=== PATIENT | male | born 1960 | race Asian ===

== ENCOUNTER 2021-05-15 20:33 | Inpatient (IN) | payer OTHER, SELFPAY ==
[~2021-05-15] VITALS: Ht 167.6 cm; Wt 63.0 kg
[2021-05-15 20:55] VITALS: BP_SYST 142
[2021-05-15 22:39] LABS: BASOPHILS % (AUTO) 0.3 % (0.0-2.0); EOSINOPHILS # (AUTO) 0.1 K/uL (0.0-0.4); EOSINOPHILS % (AUTO) 1.3 % (0.0-4.0); HEMATOCRIT 43.6 % (36-54); HEMOGLOBIN 14.9 g/dL (14.0-18.0); LYMPHOCYTES # (AUTO) 0.6 K/uL (1.0-5.5); LYMPHOCYTES % (AUTO) 6.1 % (20.5-51.5); MEAN CORPUSCULAR HEMOGLOBIN 30 pg (27-31); MEAN CORPUSCULAR HGB CONC 34 % (32-36); MEAN CORPUSCULAR VOLUME 87 fL (79.0-98.0); MONOCYTES # (AUTO) 0.8 K/uL (0.0-1.0); MONOCYTES % (AUTO) 7.8 % (1.7-9.3); NEUTROPHILS # (AUTO) 8.7 K/uL (1.8-7.7); NEUTROPHILS % (AUTO) 84.5 % (40.0-70.0); PLATELET COUNT (AUTO) 394 K/uL (130-430); RED BLOOD CELL COUNT(AUTO) 5.03 MIL/uL (4.2-6.2); RED CELL DISTRIBUTION WIDTH 13.9 % (9.0-15.0); WHITE BLOOD COUNT (AUTO) 10.3 K/uL (4.8-10.8)
[2021-05-15 22:47] LABS: CALCIUM 7.9 mg/dL (8.4-11.0); CREATININE 0.87 mg/dL (0.55-1.30); POTASSIUM 3.2 mmol/L (3.5-5.1)
[2021-05-15 22:54] LABS: ALBUMIN 2.3 g/dL (3.4-4.8); TOTAL BILIRUBIN 0.5 mg/dL (0.0-1.0)
[2021-05-15] MEDS ORDERED: AZITHROMYCIN 500 MG in NS 250 ML IV ONE (23:00)
[2021-05-15] MEDS ORDERED: DEXAMETHASONE SOD PHOSPHATE 4 MG/ML VIAL IVP ONE (23:00)
[2021-05-15] MEDS ORDERED: cefTRIAXone 1 GM IVPB PREMIX 50 ML IV ONE (23:00)
[2021-05-15 23:32] LABS: C-REACTIVE PROTEIN QUANT 11.6 mg/dL (0-0.5)
[2021-05-15] MEDS ORDERED: AZITHROMYCIN 500 MG/VIAL (ZITHROMAX) IV ONE (23:52)
[2021-05-16] MEDS ORDERED: NACL 0.9% 1,000 ML IV ONE (01:00)
[2021-05-16 01:03] LABS: FIBRINOGEN 521 mg/dL (200-400)
[2021-05-16 01:28] VITALS: BP_SYST 157
[2021-05-16] MEDS ORDERED: POTASSIUM CHLORIDE 20 MEQ TAB.PRT.SR ONE (01:38)
[2021-05-16] MEDS ORDERED: POTASSIUM CHLORIDE 20 MEQ TAB.PRT.SR PO ONE (01:45)
[2021-05-16 05:01] VITALS: BP_SYST 139
[2021-05-16 08:00] VITALS: BP_SYST 128
[2021-05-16 08:16] LABS: BASOPHILS % (AUTO) 0.1 % (0.0-2.0); HEMATOCRIT 43.5 % (36-54); HEMOGLOBIN 14.8 g/dL (14.0-18.0); LYMPHOCYTES # (AUTO) 0.8 K/uL (1.0-5.5); LYMPHOCYTES % (AUTO) 10.8 % (20.5-51.5); MEAN CORPUSCULAR HEMOGLOBIN 29 pg (27-31); MEAN CORPUSCULAR HGB CONC 34 % (32-36); MEAN CORPUSCULAR VOLUME 87 fL (79.0-98.0); MONOCYTES # (AUTO) 0.3 K/uL (0.0-1.0); MONOCYTES % (AUTO) 3.9 % (1.7-9.3); NEUTROPHILS # (AUTO) 6.5 K/uL (1.8-7.7); NEUTROPHILS % (AUTO) 85.2 % (40.0-70.0); PLATELET COUNT (AUTO) 364 K/uL (130-430); RED BLOOD CELL COUNT(AUTO) 5.02 MIL/uL (4.2-6.2); RED CELL DISTRIBUTION WIDTH 14.2 % (9.0-15.0); WHITE BLOOD COUNT (AUTO) 7.7 K/uL (4.8-10.8)
[2021-05-16] MEDS ORDERED: HYDROcodone/ACETAMIN 5-325 MG TAB (NORCO/ VICODIN) PO PRN (11:45)
[2021-05-16] MEDS ORDERED: ONDANSETRON HCL 4 MG/2 ML VIAL IVP PRN (11:45)
[2021-05-16] MEDS ORDERED: NALOXONE HCL 0.4 MG/ML AMP (NARCAN) IVP PRN ×2 (11:45)
[2021-05-16] MEDS ORDERED: LORazepam 2 MG/ML VIAL IVP PRN (11:45)
[2021-05-16] MEDS ORDERED: HYDROcodone/ACETAMIN 10-325 MG TAB PO PRN (11:45)
[2021-05-16] MEDS ORDERED: ACETAMINOPHEN 325 MG TABLET PO PRN (11:45)
[2021-05-16 12:00] VITALS: BP_SYST 127
[2021-05-16] MEDS ORDERED: CHOLECALCIFEROL (VITAMIN D3) 5,000 UNIT TABLET PO ONE (12:00)
[2021-05-16] MEDS: cefTRIAXone 1 GM IVPB PREMIX 50 ML IV SCH (13:46)
[2021-05-16] MEDS: DEXAMETHASONE SOD PHOSPHATE 10 MG/ML VIAL IVP SCH (13:46)
[2021-05-16] MEDS: NORMAL SALINE 5 ML DISP.SYRIN IVF SCH ×2 (13:47→22:00)
[2021-05-16] MEDS: AZITHROMYCIN 500 MG in NS 250 ML IV SCH (13:47)
[2021-05-16 13:49] LABS: C-REACTIVE PROTEIN QUANT 9.5 mg/dL (0-0.5); CREATININE 0.9 mg/dL (0.55-1.30); POTASSIUM 4.5 mmol/L (3.5-5.1)
[2021-05-16] MEDS ORDERED: NORMAL SALINE 5 ML DISP.SYRIN IVF SCH (14:00)
[2021-05-16] MEDS: IPRATROPIUM BROM 0.5 MG/2.5 ML VIAL.NEB (ATROVENT) INH SCH ×3 (15:00→20:25)
[2021-05-16] MEDS: ALBUTEROL SULFATE 0.083% 2.5 MG/3 ML VIAL.NEB INH SCH ×3 (15:00→20:25)
[2021-05-16] MEDS ORDERED: BUDESONIDE 0.5 MG/2 ML AMPUL.NEB INH ONE (15:30)
[2021-05-16 16:00] VITALS: BP_SYST 138
[2021-05-16] MEDS: BUDESONIDE 0.5 MG/2 ML AMPUL.NEB INH SCH (20:25)
[2021-05-16 20:30] VITALS: BP_SYST 149
[2021-05-16] MEDS: ASCORBIC ACID 500 MG TABLET PO SCH (20:34)
[2021-05-16] MEDS: ENOXAPARIN SODIUM 60 MG/0.6 ML SYRINGE SUBCUT SCH (20:36)
[2021-05-17] VITALS: BP_SYST 132
[2021-05-17] MEDS: NORMAL SALINE 5 ML DISP.SYRIN IVF SCH ×3 (05:51→21:46)
[2021-05-17 08:00] VITALS: BP_SYST 122
[2021-05-17] MEDS: ASCORBIC ACID 500 MG TABLET PO SCH ×2 (09:04→21:43)
[2021-05-17] MEDS: CHOLECALCIFEROL (VITAMIN D3) 5,000 UNIT TABLET PO SCH (09:04)
[2021-05-17] MEDS: ENOXAPARIN SODIUM 60 MG/0.6 ML SYRINGE SUBCUT SCH ×2 (09:10→21:44)
[2021-05-17 11:23] LABS: BASOPHILS % (AUTO) 0.1 % (0.0-2.0); EOSINOPHILS # (AUTO) 0.1 K/uL (0.0-0.4); EOSINOPHILS % (AUTO) 0.4 % (0.0-4.0); HEMATOCRIT 41.8 % (36-54); HEMOGLOBIN 13.8 g/dL (14.0-18.0); LYMPHOCYTES # (AUTO) 1.1 K/uL (1.0-5.5); LYMPHOCYTES % (AUTO) 6.7 % (20.5-51.5); MEAN CORPUSCULAR HEMOGLOBIN 29 pg (27-31); MEAN CORPUSCULAR HGB CONC 33 % (32-36); MEAN CORPUSCULAR VOLUME 87 fL (79.0-98.0); MONOCYTES # (AUTO) 0.9 K/uL (0.0-1.0); MONOCYTES % (AUTO) 5.6 % (1.7-9.3); NEUTROPHILS # (AUTO) 13.6 K/uL (1.8-7.7); NEUTROPHILS % (AUTO) 87.2 % (40.0-70.0); PLATELET COUNT (AUTO) 386 K/uL (130-430); RED BLOOD CELL COUNT(AUTO) 4.79 MIL/uL (4.2-6.2); RED CELL DISTRIBUTION WIDTH 13.8 % (9.0-15.0); WHITE BLOOD COUNT (AUTO) 15.6 K/uL (4.8-10.8)
[2021-05-17 11:43] LABS: ALBUMIN 2.2 g/dL (3.4-4.8); CALCIUM 8.3 mg/dL (8.4-11.0); CREATININE 0.75 mg/dL (0.55-1.30); PHOSPHORUS 3.6 mg/dL (2.7-4.5); TOTAL BILIRUBIN 0.4 mg/dL (0.0-1.0)
[2021-05-17] MEDS: DEXAMETHASONE SOD PHOSPHATE 10 MG/ML VIAL IVP SCH (12:11)
[2021-05-17] MEDS: AZITHROMYCIN 500 MG in NS 250 ML IV SCH (12:12)
[2021-05-17] MEDS: cefTRIAXone 1 GM IVPB PREMIX 50 ML IV SCH (12:12)
[2021-05-17 12:32] LABS: C-REACTIVE PROTEIN QUANT 5.7 mg/dL (0-0.5)
[2021-05-17 12:39] VITALS: BP_SYST 133
[2021-05-17 16:47] VITALS: BP_SYST 135
[2021-05-17 20:30] VITALS: BP_SYST 136
[2021-05-18 04:00] VITALS: BP_SYST 134
[2021-05-18] MEDS: NORMAL SALINE 5 ML DISP.SYRIN IVF SCH ×3 (06:28→20:14)
[2021-05-18 08:00] VITALS: BP_SYST 124
[2021-05-18 08:25] LABS: BASOPHILS % (AUTO) 0.2 % (0.0-2.0); EOSINOPHILS # (AUTO) 0.3 K/uL (0.0-0.4); EOSINOPHILS % (AUTO) 2.7 % (0.0-4.0); HEMATOCRIT 40.9 % (36-54); HEMOGLOBIN 13.7 g/dL (14.0-18.0); LYMPHOCYTES # (AUTO) 0.9 K/uL (1.0-5.5); LYMPHOCYTES % (AUTO) 7.7 % (20.5-51.5); MEAN CORPUSCULAR HEMOGLOBIN 29 pg (27-31); MEAN CORPUSCULAR HGB CONC 33 % (32-36); MEAN CORPUSCULAR VOLUME 88 fL (79.0-98.0); MONOCYTES # (AUTO) 0.5 K/uL (0.0-1.0); NEUTROPHILS # (AUTO) 10.1 K/uL (1.8-7.7); NEUTROPHILS % (AUTO) 85.4 % (40.0-70.0); PLATELET COUNT (AUTO) 342 K/uL (130-430); RED BLOOD CELL COUNT(AUTO) 4.68 MIL/uL (4.2-6.2); WHITE BLOOD COUNT (AUTO) 11.8 K/uL (4.8-10.8)
[2021-05-18 08:27] LABS: CALCIUM 7.7 mg/dL (8.4-11.0); CREATININE 0.7 mg/dL (0.55-1.30); POTASSIUM 3.6 mmol/L (3.5-5.1)
[2021-05-18] MEDS: ENOXAPARIN SODIUM 60 MG/0.6 ML SYRINGE SUBCUT SCH ×3 (09:00→20:14)
[2021-05-18] MEDS: ASCORBIC ACID 500 MG TABLET PO SCH ×2 (10:10→20:13)
[2021-05-18] MEDS: CHOLECALCIFEROL (VITAMIN D3) 5,000 UNIT TABLET PO SCH (10:10)
[2021-05-18 10:34] LABS: C-REACTIVE PROTEIN QUANT 13.1 mg/dL (0-0.5)
[2021-05-18 12:00] VITALS: BP_SYST 100
[2021-05-18] MEDS: DEXAMETHASONE SOD PHOSPHATE 10 MG/ML VIAL IVP SCH (14:22)
[2021-05-18] MEDS: cefTRIAXone 1 GM IVPB PREMIX 50 ML IV SCH (14:22)
[2021-05-18] MEDS: AZITHROMYCIN 500 MG in NS 250 ML IV SCH (14:23)
[2021-05-18 15:57] LABS: ERYTHROCYTE SEDIMENTATION RATE 28 MM/HR (0-15)
[2021-05-18 16:00] VITALS: BP_SYST 115
[2021-05-18 20:00] VITALS: BP_SYST 116
[2021-05-19] VITALS (20 sets, daily range): BP systolic 72–165
[2021-05-19] MEDS: NORMAL SALINE 5 ML DISP.SYRIN IVF SCH ×3 (06:14→21:07)
[2021-05-19] MEDS: BUDESONIDE 0.5 MG/2 ML AMPUL.NEB INH SCH ×2 (09:00→21:00)
[2021-05-19] MEDS: CHOLECALCIFEROL (VITAMIN D3) 5,000 UNIT TABLET PO SCH (09:00)
[2021-05-19] MEDS: ASCORBIC ACID 500 MG TABLET PO SCH ×2 (09:00→21:07)
[2021-05-19] MEDS: ENOXAPARIN SODIUM 60 MG/0.6 ML SYRINGE SUBCUT SCH ×2 (09:00→21:06)
[2021-05-19] MEDS ORDERED: PROPOFOL DRIP 100 ML IV ONE (09:12)
[2021-05-19] MEDS ORDERED: PROPOFOL DRIP 100 ML IV PRN (09:15)
[2021-05-19] MEDS ORDERED: ETOMIDATE 20 MG/ 10 ML VIAL (AMIDATE) IVP ONE (09:15)
[2021-05-19] MEDS ORDERED: VECURONIUM BROMIDE 10 MG/VIAL (NORCURON) IVP ONE ×2 (09:15→12:00)
[2021-05-19] MEDS ORDERED: METOPROLOL TARTRATE 5 MG/5 ML AMPUL IVP PRN (10:15)
[2021-05-19] MEDS ORDERED: METOPROLOL TARTRATE 5 MG/5 ML AMPUL IVP ONE (10:15)
[2021-05-19] MEDS ORDERED: MORPHINE SULFATE IN 0.9 % NACL 100 ML IV PRN (11:00)
[2021-05-19] MEDS ORDERED: NALOXONE HCL 0.4 MG/ML AMP (NARCAN) IVP PRN ×2 (11:00→13:15)
[2021-05-19] MEDS ORDERED: MORPHINE SULFATE IN 0.9 % NACL 100 ML IV ONE (11:03)
[2021-05-19] MEDS ORDERED: MIDAZOLAM IN NACL,ISO-OSMOT/PF 100 ML IV ONE (11:04)
[2021-05-19 11:09] LABS: HEMATOCRIT 45.7 % (36-54); HEMOGLOBIN 14.8 g/dL (14.0-18.0); MEAN CORPUSCULAR HEMOGLOBIN 29 pg (27-31); MEAN CORPUSCULAR HGB CONC 32 % (32-36); MEAN CORPUSCULAR VOLUME 88 fL (79.0-98.0); PLATELET COUNT (AUTO) 336 K/uL (130-430); RED BLOOD CELL COUNT(AUTO) 5.19 MIL/uL (4.2-6.2); RED CELL DISTRIBUTION WIDTH 14.4 % (9.0-15.0)
[2021-05-19] MEDS ORDERED: VECURONIUM BROMIDE 10 MG/VIAL (NORCURON) ONE (11:25)
[2021-05-19] MEDS ORDERED: NOREPINEPHRINE 4 MG/4 ML VIAL IV ONE ×3 (11:27→20:04)
[2021-05-19 11:29] LABS: ALBUMIN 2.2 g/dL (3.4-4.8); CALCIUM 7.9 mg/dL (8.4-11.0); CREATININE 0.68 mg/dL (0.55-1.30); POTASSIUM 3.6 mmol/L (3.5-5.1); THYROID STIMULATING HORMONE 0.01 uIu/mL (0.36-3.74); TOTAL BILIRUBIN 0.9 mg/dL (0.0-1.0)
[2021-05-19 11:44] LABS: PROTHROMBIN TIME 10.5 SECS (9.5-12.5)
[2021-05-19] MEDS: DEXAMETHASONE SOD PHOSPHATE 10 MG/ML VIAL IVP SCH (12:00)
[2021-05-19] MEDS ORDERED: VECURONIUM BROMIDE 50 MG in NS 50 ML IV PRN (13:15)
[2021-05-19] MEDS: ALBUTEROL SULFATE 0.083% 2.5 MG/3 ML VIAL.NEB INH SCH ×4 (13:38→23:00)
[2021-05-19] MEDS: IPRATROPIUM BROM 0.5 MG/2.5 ML VIAL.NEB (ATROVENT) INH SCH ×4 (13:38→23:00)
[2021-05-19] MEDS: AZITHROMYCIN 500 MG in NS 250 ML IV SCH (13:42)
[2021-05-19] MEDS: VECURONIUM BROMIDE 50 MG in NS 50 ML IV PRN (14:03)
[2021-05-19 14:51] LABS: BAND % (MANUAL) 4 % (0-6); BASOPHILS % (MANUAL) 0 % (0-2); EOSINOPHILS % (MANUAL) 0 % (0-7); LYMPHOCYTES % (MANUAL) 3 % (20-46); MONOCYTES % (MANUAL) 2 % (0-11)
[2021-05-19] MEDS: NOREPINEPHRINE BITARTRATE 4 MG in NS 246 ML IV PRN ×2 (15:41→18:14)
[2021-05-19] MEDS: cefTRIAXone 1 GM IVPB PREMIX 50 ML IV SCH (15:42)
[2021-05-19] MEDS: NACL 0.9% 1,000 ML IV SCH (16:26)
[2021-05-19] MEDS ORDERED: TOCILIZUMAB 400 MG in NS 100 ML IV ONE (17:00)
[2021-05-19] MEDS: NOREPINEPHRINE BITARTRATE IV PRN (21:05)
[2021-05-19] MEDS: NS IV PRN (21:05)
[2021-05-20] VITALS (29 sets, daily range): BP systolic 86–143
[2021-05-20] MEDS: NACL 0.9% 1,000 ML IV SCH ×2 (01:53→19:25)
[2021-05-20] MEDS: ALBUTEROL SULFATE 0.083% 2.5 MG/3 ML VIAL.NEB INH SCH ×2 (03:00→07:00)
[2021-05-20] MEDS: IPRATROPIUM BROM 0.5 MG/2.5 ML VIAL.NEB (ATROVENT) INH SCH ×5 (03:00→23:24)
[2021-05-20] MEDS: NORMAL SALINE 5 ML DISP.SYRIN IVF SCH ×3 (05:46→22:20)
[2021-05-20 06:21] LABS: BASOPHILS % (AUTO) 0.3 % (0.0-2.0); EOSINOPHILS # (AUTO) 0.3 K/uL (0.0-0.4); EOSINOPHILS % (AUTO) 1.7 % (0.0-4.0); HEMATOCRIT 42.3 % (36-54); LYMPHOCYTES # (AUTO) 1.3 K/uL (1.0-5.5); LYMPHOCYTES % (AUTO) 7.2 % (20.5-51.5); MEAN CORPUSCULAR HEMOGLOBIN 30 pg (27-31); MEAN CORPUSCULAR HGB CONC 33 % (32-36); MEAN CORPUSCULAR VOLUME 89 fL (79.0-98.0); MONOCYTES # (AUTO) 0.6 K/uL (0.0-1.0); MONOCYTES % (AUTO) 3.2 % (1.7-9.3); NEUTROPHILS # (AUTO) 15.7 K/uL (1.8-7.7); NEUTROPHILS % (AUTO) 87.6 % (40.0-70.0); PLATELET COUNT (AUTO) 258 K/uL (130-430); RED BLOOD CELL COUNT(AUTO) 4.74 MIL/uL (4.2-6.2); RED CELL DISTRIBUTION WIDTH 14.4 % (9.0-15.0); WHITE BLOOD COUNT (AUTO) 17.9 K/uL (4.8-10.8)
[2021-05-20 06:33] LABS: ALBUMIN 1.9 g/dL (3.4-4.8); CALCIUM 7.2 mg/dL (8.4-11.0); CREATININE 1.03 mg/dL (0.55-1.30); POTASSIUM 4.8 mmol/L (3.5-5.1); TOTAL BILIRUBIN 0.4 mg/dL (0.0-1.0)
[2021-05-20 08:04] LABS: ERYTHROCYTE SEDIMENTATION RATE 9 MM/HR (0-15)
[2021-05-20] MEDS: ASCORBIC ACID 500 MG TABLET PO SCH ×2 (08:51→20:41)
[2021-05-20] MEDS: CHOLECALCIFEROL (VITAMIN D3) 5,000 UNIT TABLET PO SCH (08:51)
[2021-05-20] MEDS: ENOXAPARIN SODIUM 60 MG/0.6 ML SYRINGE SUBCUT SCH ×2 (08:54→22:22)
[2021-05-20] MEDS: BUDESONIDE 0.5 MG/2 ML AMPUL.NEB INH SCH ×2 (09:00→19:57)
[2021-05-20] MEDS: MIDAZOLAM IN NACL,ISO-OSMOT/PF 100 ML IV PRN (09:01)
[2021-05-20] MEDS ORDERED: DEXAMETHASONE SOD PHOSPHATE 10 MG/ML VIAL IVP ONE (09:45)
[2021-05-20] MEDS ORDERED: PANTOPRAZOLE SODIUM 40 MG/VIAL (PROTONIX) IVP ONE (10:15)
[2021-05-20 12:44] LABS: C-REACTIVE PROTEIN QUANT 13.2 mg/dL (0-0.5)
[2021-05-20] MEDS: ALBUTEROL MDI INHALATION 8 GM INH INH SCH ×2 (13:09→19:00)
[2021-05-20] MEDS: AZITHROMYCIN 500 MG in NS 250 ML IV SCH (13:10)
[2021-05-20] MEDS: PIPERACILLIN/TAZO 2.25G/DEX-IS 50 ML IV SCH ×2 (15:03→20:05)
[2021-05-20] MEDS ORDERED: VASOPRESSIN 100 UNITS in D5W 45 ML IV PRN (16:00)
[2021-05-20] MEDS ORDERED: PHENYLEPHRINE HCL 100 MG in NS 240 ML IV PRN (16:00)
[2021-05-20] MEDS ORDERED: TOCILIZUMAB 400 MG in NS 100 ML IV ONE (17:00)
[2021-05-20] MEDS: FLUCONAZOLE 200 mg/ NS 100 ML IV SCH (19:25)
[2021-05-20] MEDS: DEXAMETHASONE SOD PHOSPHATE 10 MG/ML VIAL IVP SCH (20:41)
[2021-05-21] VITALS (30 sets, daily range): BP systolic 88–140
[2021-05-21] MEDS: MORPHINE SULFATE IN 0.9 % NACL 100 ML IV PRN (00:26)
[2021-05-21] MEDS: PIPERACILLIN/TAZO 2.25G/DEX-IS 50 ML IV SCH ×4 (00:27→19:40)
[2021-05-21] MEDS: IPRATROPIUM BROM 0.5 MG/2.5 ML VIAL.NEB (ATROVENT) INH SCH ×5 (03:23→23:07)
[2021-05-21] MEDS: NACL 0.9% 1,000 ML IV SCH ×2 (05:18→17:28)
[2021-05-21] MEDS: NORMAL SALINE 5 ML DISP.SYRIN IVF SCH ×3 (05:19→21:57)
[2021-05-21] MEDS: ALBUTEROL MDI INHALATION 8 GM INH INH SCH ×4 (07:00→23:08)
[2021-05-21 07:04] LABS: ANION GAP 8 (5-15); C-REACTIVE PROTEIN QUANT 7.3 mg/dL (0-0.5); CALCIUM 7.6 mg/dL (8.4-11.0); CHLORIDE 111 mmol/L (98-107); CREATININE 1.17 mg/dL (0.55-1.30); GLUCOSE 165 mg/dL (70-99); POTASSIUM 4.7 mmol/L (3.5-5.1); SODIUM SERUM 141 mmol/L (136-145); UREA NITROGEN, BLOOD 20 mg/dL (8-21)
[2021-05-21 07:57] LABS: GFR AFRICAN AMERICAN 81 mL/min (>90)
[2021-05-21] MEDS: BUDESONIDE 0.5 MG/2 ML AMPUL.NEB INH SCH ×2 (08:02→19:41)
[2021-05-21 08:56] LABS: THYROID STIMULATING HORMONE < 0.01 uIu/mL (0.34-4.82)
[2021-05-21] MEDS: DEXAMETHASONE SOD PHOSPHATE 10 MG/ML VIAL IVP SCH ×2 (08:56→20:38)
[2021-05-21] MEDS: ASCORBIC ACID 500 MG TABLET PO SCH ×2 (08:57→20:38)
[2021-05-21] MEDS: CHOLECALCIFEROL (VITAMIN D3) 5,000 UNIT TABLET PO SCH (08:57)
[2021-05-21] MEDS: PANTOPRAZOLE SODIUM 40 MG/VIAL (PROTONIX) IVP SCH (08:57)
[2021-05-21] MEDS: ENOXAPARIN SODIUM 60 MG/0.6 ML SYRINGE SUBCUT SCH ×2 (08:58→20:40)
[2021-05-21 09:05] LABS: BASOPHILS % (AUTO) 0.1 % (0.0-2.0); EOSINOPHILS % (AUTO) 0.1 % (0.0-4.0); HEMATOCRIT 39.3 % (36-54); HEMOGLOBIN 12.8 g/dL (14.0-18.0); LYMPHOCYTES # (AUTO) 0.6 K/uL (1.0-5.5); LYMPHOCYTES % (AUTO) 3.4 % (20.5-51.5); MEAN CORPUSCULAR HEMOGLOBIN 29 pg (27-31); MEAN CORPUSCULAR HGB CONC 33 % (32-36); MEAN CORPUSCULAR VOLUME 90 fL (79.0-98.0); MONOCYTES # (AUTO) 0.2 K/uL (0.0-1.0); MONOCYTES % (AUTO) 1.3 % (1.7-9.3); NEUTROPHILS # (AUTO) 15.3 K/uL (1.8-7.7); NEUTROPHILS % (AUTO) 95.1 % (40.0-70.0); PLATELET COUNT (AUTO) 256 K/uL (130-430); RED CELL DISTRIBUTION WIDTH 14.6 % (9.0-15.0)
[2021-05-21] MEDS: MIDAZOLAM IN NACL,ISO-OSMOT/PF 100 ML IV PRN (10:11)
[2021-05-21 10:53] LABS: ERYTHROCYTE SEDIMENTATION RATE 13 MM/HR (0-15)
[2021-05-21 11:05] LABS: WHITE BLOOD COUNT (AUTO) 16.1 K/uL (4.8-10.8)
[2021-05-21] MEDS: FLUCONAZOLE 200 mg/ NS 100 ML IV SCH (12:31)
[2021-05-22] VITALS (27 sets, daily range): BP systolic 89–155
[2021-05-22] MEDS: PIPERACILLIN/TAZO 2.25G/DEX-IS 50 ML IV SCH ×4 (00:41→19:00)
[2021-05-22] MEDS: MORPHINE SULFATE IN 0.9 % NACL 100 ML IV PRN ×2 (01:08→22:40)
[2021-05-22] MEDS: IPRATROPIUM BROM 0.5 MG/2.5 ML VIAL.NEB (ATROVENT) INH SCH ×6 (03:03→23:19)
[2021-05-22] MEDS: ALBUTEROL MDI INHALATION 8 GM INH INH SCH ×6 (03:04→23:19)
[2021-05-22] MEDS: NORMAL SALINE 5 ML DISP.SYRIN IVF SCH ×3 (06:02→22:57)
[2021-05-22] MEDS: NACL 0.9% 1,000 ML IV SCH ×2 (06:02→20:15)
[2021-05-22 07:06] LABS: T4 (THYROXINE) 5.4 ug/dL (4.5-12.0)
[2021-05-22 07:19] LABS: BASOPHILS % (AUTO) 0.1 % (0.0-2.0); HEMATOCRIT 35.7 % (36-54); HEMOGLOBIN 11.9 g/dL (14.0-18.0); LYMPHOCYTES # (AUTO) 0.5 K/uL (1.0-5.5); LYMPHOCYTES % (AUTO) 3.5 % (20.5-51.5); MEAN CORPUSCULAR HEMOGLOBIN 30 pg (27-31); MEAN CORPUSCULAR HGB CONC 33 % (32-36); MEAN CORPUSCULAR VOLUME 89 fL (79.0-98.0); MONOCYTES # (AUTO) 0.3 K/uL (0.0-1.0); MONOCYTES % (AUTO) 1.9 % (1.7-9.3); NEUTROPHILS # (AUTO) 13.2 K/uL (1.8-7.7); NEUTROPHILS % (AUTO) 94.5 % (40.0-70.0); PLATELET COUNT (AUTO) 230 K/uL (130-430); RED BLOOD CELL COUNT(AUTO) 4.03 MIL/uL (4.2-6.2); RED CELL DISTRIBUTION WIDTH 14.3 % (9.0-15.0)
[2021-05-22 08:24] LABS: ALBUMIN 1.8 g/dL (3.4-4.8); C-REACTIVE PROTEIN QUANT 3.5 mg/dL (0-0.5); CALCIUM 7.6 mg/dL (8.4-11.0); CREATININE 1.47 mg/dL (0.55-1.30); POTASSIUM 4.6 mmol/L (3.5-5.1); TOTAL BILIRUBIN 0.4 mg/dL (0.0-1.0)
[2021-05-22] MEDS: DEXAMETHASONE SOD PHOSPHATE 10 MG/ML VIAL IVP SCH ×2 (08:36→21:00)
[2021-05-22] MEDS: FUROSEMIDE 40 MG/4 ML VIAL IVP SCH ×2 (08:37→21:00)
[2021-05-22] MEDS: ASCORBIC ACID 500 MG TABLET PO SCH ×2 (08:38→21:00)
[2021-05-22] MEDS: CHOLECALCIFEROL (VITAMIN D3) 5,000 UNIT TABLET PO SCH (08:38)
[2021-05-22] MEDS: ENOXAPARIN SODIUM 60 MG/0.6 ML SYRINGE SUBCUT SCH ×2 (08:38→21:00)
[2021-05-22] MEDS: BUDESONIDE 0.5 MG/2 ML AMPUL.NEB INH SCH ×2 (08:40→19:48)
[2021-05-22] MEDS: PANTOPRAZOLE SODIUM 40 MG/VIAL (PROTONIX) IVP SCH (09:32)
[2021-05-22] MEDS: VECURONIUM BROMIDE 50 MG in NS 50 ML IV PRN (09:34)
[2021-05-22] MEDS: MIDAZOLAM IN NACL,ISO-OSMOT/PF 100 ML IV PRN (09:57)
[2021-05-22 10:52] LABS: ERYTHROCYTE SEDIMENTATION RATE 8 MM/HR (0-15)
[2021-05-22] MEDS: FLUCONAZOLE 200 mg/ NS 100 ML IV SCH (12:54)
[2021-05-22] MEDS ORDERED: AMIODARONE HCL 150 MG in D5W 100 ML IV ONE (16:45)
[2021-05-22] MEDS ORDERED: AMIODARONE HCL 900 MG in D5W 482 ML IV PRN (16:45)
[2021-05-23] VITALS (27 sets, daily range): BP systolic 99–208
[2021-05-23] MEDS: PIPERACILLIN/TAZO 2.25G/DEX-IS 50 ML IV SCH ×2 (01:00→06:41)
[2021-05-23] MEDS: IPRATROPIUM BROM 0.5 MG/2.5 ML VIAL.NEB (ATROVENT) INH SCH ×3 (03:44→11:00)
[2021-05-23] MEDS: ALBUTEROL MDI INHALATION 8 GM INH INH SCH ×3 (03:45→11:53)
[2021-05-23] MEDS: NORMAL SALINE 5 ML DISP.SYRIN IVF SCH ×2 (06:41→13:32)
[2021-05-23] MEDS: BUDESONIDE 0.5 MG/2 ML AMPUL.NEB INH SCH (08:18)
[2021-05-23] MEDS ORDERED: SODIUM BICARBONATE 8.4% JECT 50 MEQ/50 ML SYRINGE ONE (08:43)
[2021-05-23] MEDS: DEXAMETHASONE SOD PHOSPHATE 10 MG/ML VIAL IVP SCH (08:44)
[2021-05-23] MEDS ORDERED: SODIUM BICARBONATE 8.4% JECT 50 MEQ/50 ML SYRINGE IVP ONE ×2 (08:45→12:30)
[2021-05-23] MEDS: LR 1,000 ML IV SCH ×6 (08:45→12:41)
[2021-05-23] MEDS: ASCORBIC ACID 500 MG TABLET PO SCH (08:45)
[2021-05-23] MEDS: ENOXAPARIN SODIUM 60 MG/0.6 ML SYRINGE SUBCUT SCH (08:47)
[2021-05-23] MEDS: CHOLECALCIFEROL (VITAMIN D3) 5,000 UNIT TABLET PO SCH (08:47)
[2021-05-23] MEDS: NACL 0.9% 1,000 ML IV SCH (08:48)
[2021-05-23] MEDS: NS IV PRN (08:51)
[2021-05-23] MEDS: NOREPINEPHRINE BITARTRATE IV PRN (08:51)
[2021-05-23] MEDS: PANTOPRAZOLE SODIUM 40 MG/VIAL (PROTONIX) IVP SCH (09:00)
[2021-05-23 09:38] LABS: HEMATOCRIT 44.2 % (36-54); HEMOGLOBIN 13.3 g/dL (14.0-18.0); MEAN CORPUSCULAR HEMOGLOBIN 29 pg (27-31); MEAN CORPUSCULAR HGB CONC 30 % (32-36); MEAN CORPUSCULAR VOLUME 97 fL (79.0-98.0); PLATELET COUNT (AUTO) 73 K/uL (130-430); RED BLOOD CELL COUNT(AUTO) 4.57 MIL/uL (4.2-6.2); RED CELL DISTRIBUTION WIDTH 16.1 % (9.0-15.0)
[2021-05-23] MEDS ORDERED: INSULIN ASPART 100 UNITS/ML, 10 ML VIAL (NovoLOG) SUBCUT PRN (10:00)
[2021-05-23] MEDS ORDERED: INSULIN LISPRO SLIDING SCALE 100 UNITS/ML VIAL (humaLOG) SUBCUT PRN (10:15)
[2021-05-23 11:46] LABS: CALCIUM 7.7 mg/dL (8.4-11.0); CREATININE 2.3 mg/dL (0.55-1.30)
[2021-05-23 11:51] LABS: PHOSPHORUS 17.4 mg/dL (2.7-4.5)
[2021-05-23 12:01] LABS: C-REACTIVE PROTEIN QUANT 2.3 mg/dL (0-0.5)
[2021-05-23] MEDS ORDERED: INSULIN REGULAR, HUMAN 100 UNITS/ML, 10 ML VIAL IV ONE (12:30)
[2021-05-23] MEDS ORDERED: DEXTROSE 50% JECT 50 ML DISP.SYRIN IVP ONE (12:30)
[2021-05-23 12:35] LABS: ERYTHROCYTE SEDIMENTATION RATE 2 MM/HR (0-15)
[2021-05-23] MEDS ORDERED: DEXTROSE 50% JECT 50 ML DISP.SYRIN ONE (12:35)
[2021-05-23] MEDS: FLUCONAZOLE 200 mg/ NS 100 ML IV SCH (12:37)
[2021-05-23] MEDS ORDERED: SEVELAMER CARBONATE 800 MG TABLET PO ONE (12:45)
[2021-05-23] MEDS ORDERED: SODIUM POLYSTYRENE SULFONATE 15 GM/60 ML UDBTL NG ONE (12:45)
[2021-05-23] MEDS ORDERED: BARICITINIB -Non-Formulary 2 MG TABLET PO ONE (13:15)
[2021-05-23] MEDS ORDERED: MEROPENEM 500 MG in NS 50 ML IV SCH (14:00)
[2021-05-23 14:35] LABS: BAND % (MANUAL) 21 % (0-6); BASOPHILS % (MANUAL) 0 % (0-2); EOSINOPHILS % (MANUAL) 0 % (0-7); LYMPHOCYTES % (MANUAL) 5 % (20-46); MONOCYTES % (MANUAL) 2 % (0-11)
[2021-05-23] MEDS ORDERED: SEVELAMER CARBONATE 800 MG TABLET PO SCH (18:00)
[2021-05-23] MEDS ORDERED: APIXABAN 2.5 MG TABLET PO SCH (21:00)
[2021-05-24] MEDS ORDERED: BARICITINIB -Non-Formulary 2 MG TABLET PO SCH (09:00)
== END 2021-05-23 16:54 | DRG 870 ==
LOC: SED 20:33 → STU 23:32 → SIC 05-19 08:30
PROVIDERS: ADMIT Preventive Medicine Preventive Medicine/Occupational Environmental Medicine; ATTEND Preventive Medicine Preventive Medicine/Occupational Environmental Medicine
PROC: 0BH17EZ Insertion of Endotracheal Airway into Trachea, Via Natural or Artificial Opening (ICD-10-PCS; principal; 2021-05-19)
PROC: 5A1955Z Respiratory Ventilation, Greater than 96 Consecutive Hours (ICD-10-PCS; 2021-05-19)
PROC: 02HV33Z Insertion of Infusion Device into Superior Vena Cava, Percutaneous Approach (ICD-10-PCS; 2021-05-19)
PROC: B548ZZA Ultrasonography of Superior Vena Cava, Guidance (ICD-10-PCS; 2021-05-19)
PROC: 5A2204Z Restoration of Cardiac Rhythm, Single (ICD-10-PCS; 2021-05-22)
PROC: 5A12012 Performance of Cardiac Output, Single, Manual (ICD-10-PCS; 2021-05-23)
DX: A41.9 Sepsis, unspecified organism (principal); E43 Unspecified severe protein-calorie malnutrition; J12.82 Pneumonia due to coronavirus disease 2019; U07.1 COVID-19; J96.01 Acute respiratory failure with hypoxia; R65.21 Severe sepsis with septic shock; D68.59 Other primary thrombophilia; N17.9 Acute kidney failure, unspecified; Z99.11 Dependence on respirator [ventilator] status; E87.2 Acidosis; I46.9 Cardiac arrest, cause unspecified; D64.9 Anemia, unspecified; R74.01 Elevation of levels of liver transaminase levels; E03.9 Hypothyroidism, unspecified; E83.52 Hypercalcemia; E87.6 Hypokalemia; R73.9 Hyperglycemia, unspecified; D69.6 Thrombocytopenia, unspecified; R13.10 Dysphagia, unspecified; Z79.01 Long term (current) use of anticoagulants; Z68.22 Body mass index [BMI] 22.0-22.9, adult; Z86.73 Personal history of transient ischemic attack (TIA), and cerebral infarction without residual deficits
CPT/HCPCS: 36415; 36600; 70450-TC; 71045; 76376; 80048; 80053; 82550; 82728; 82803-TC; 82962; 83605; 83615; 83735; 83880; 84100; 84436; 84439; 84443; 84480; 84484; 85007; 85025; 85027; 85379; 85384; 85610-TC; 85651-TC; 85730-TC; 86140; 86480; 87040; 87070-TC; 87081; 87086; 87116; 87205-TC; 87305; 92950; 93005; 93970; 94002; 94003; 94640; 94760; 96361; 96365; 96368; 96375; 97110-GP; 97530-GP; 99285; C9113; G0378; J0282; J0456; J0696; J1100; J1450; J1650; J1815; J1940; J2060; J2185; J2270; J2370; J2543; J2704; J3262; J3490; J7050; J7060; J7613; J7626; U0003